=== PATIENT | male | born 1955 | race Caucasian/White ===

== ENCOUNTER 2020-11-18 18:27 | Observation (INO) ==
[2020-11-18] MEDS ORDERED: Isovue-370 500 ML BOTTLE IVP ONE (18:52)
[2020-11-18 19:06] LABS: White Blood Count 9.3 K/mcL (4.3-11.1)
[2020-11-18 19:07] LABS: Basophils # 0.1 K/mcL (0.0-0.2); Basophils % 0.8 %; Eosinophils # 0.5 K/mcL (0.0-0.6); Eosinophils % 5.5 %; Hematocrit 39.3 % (37.5-50.1); Hemoglobin 12.8 g/dL (12.9-16.9); Immature Granulocytes % 0.6 % (0-4); Lymphocytes # 2.5 K/mcL (0.6-4.6); Lymphocytes % 26.3 %; Mean Corpuscular HGB Conc 32.6 g/dL (31.6-35.5); Mean Platelet Volume 10.1 fL (9.4-12.4); Monocytes # 1.1 K/mcL (0.0-1.3); Monocytes % 12.3 %; Neutrophils # 5.1 K/mcL (1.6-8.9); Platelet Count 299 K/mcL (140-400); Red Blood Count 4.27 M/mcL (4.19-5.50); Red Cell Distribution Width 12.3 % (11.5-14.5); Segmented Neutrophils % 54.5 %
[2020-11-18] MEDS ORDERED: Aspirin 81 MG TAB.CHEW PO STA (19:13)
[2020-11-18 19:25] LABS: Alanine Aminotransferase 19 Units/L (7-52); Albumin 4.3 g/dL (3.5-5.7); Albumin/Globulin Ratio 1.4 (1.1-2.2); Alkaline Phosphatase 120 Units/L (34-104); Aspartate Amino Transferase 14 Units/L (13-39); BUN/Creatinine Ratio 21 (6-26); Bilirubin,Total 0.3 mg/dL (0.3-1.0); Blood Urea Nitrogen 19 mg/dL (8-23); Calcium 9.5 mg/dL (8.6-10.3); Carbon Dioxide 27 mEq/L (23-29); Chloride 103 mEq/L (98-107); Glucose 95 mg/dL (70-105); Osmolality,Calculated 284 (280-300); Potassium 3.9 mEq/L (3.5-5.1); Sodium 136 mEq/L (136-145); Total Protein 7.3 g/dL (6.4-8.9); Troponin I < 0.03 ng/mL (< 0.04); eGFR For African Americans > 60 (> 60); eGFR For Non-African Americans > 60 (> 60)
[2020-11-18] MEDS: Nitroglycerin 0.4 MG TAB.SUBL SL SCH ×3 (19:35→23:11)
[2020-11-18] MEDS ORDERED: Morphine Sulfate 2 MG/ML SYRINGE IVP STA (23:00)
[2020-11-19] MEDS ORDERED: Ondansetron 4 MG/2 ML VIAL IVP PRN (00:34)
[2020-11-19] MEDS ORDERED: Naloxone 0.4 MG/ML INJ IVP PRN (00:34)
[2020-11-19] MEDS ORDERED: Acetaminophen 325 MG TABLET PO PRN (00:34)
[2020-11-19] MEDS ORDERED: Melatonin 3 MG TABLET PO PRN (00:34)
[2020-11-19] MEDS ORDERED: Morphine Sulfate 2 MG/ML SYRINGE IVP PRN (03:12)
[2020-11-19] MEDS ORDERED: Morphine Sulfate 2 MG/ML SYRINGE IVP ONE (04:54)
[2020-11-19] MEDS ORDERED: Nitroglycerin 0.4 MG TAB.SUBL SL PRN (05:29)
[2020-11-19] MEDS ORDERED: Perflutren Lipid Microsphere 1.3 ML in 0.9 % Sodium Chloride 8.7 ML IVP PRN (07:49)
[2020-11-19 11:48] VITALS: BP 113/73
[2020-11-19] MEDS ORDERED: *HR* Heparin 5,000 UNIT/ML VIAL SQ SCH (18:00)
== END 2020-11-19 15:08 | disposition home or self-care (01) ==
LOC: 3BNU 18:27 → EMEROOARM 18:27 → SUATTDRO 22:23 → 3BNU 23:45
PROVIDERS: ADMIT Internal Medicine; ATTEND Registered Nurse

== ENCOUNTER 2021-11-14 13:06 | Observation (INO) ==
[2021-11-14] MEDS ORDERED: Melatonin 3 MG TABLET PO PRN (15:31)
[2021-11-14] MEDS ORDERED: Naloxone 0.4 MG/ML INJ IVP PRN (15:31)
[2021-11-14] MEDS ORDERED: Ondansetron ODT 4 MG TAB.RAPDIS SL PRN (15:31)
[2021-11-14] MEDS ORDERED: IVABRADINE HCL 7.5 MG TABLET PO ONE (15:35)
[2021-11-14 16:28] LABS: BUN/Creatinine Ratio 31 (6-26); Blood Urea Nitrogen 38 mg/dL (8-23); Calcium 9.8 mg/dL (8.6-10.3); Carbon Dioxide 30 mEq/L (23-29); Chloride 95 mEq/L (98-107); Glucose 124 mg/dL (70-105); Magnesium 2.3 mg/dL (1.6-2.6); Osmolality,Calculated 288 (280-300); Potassium 4.2 mEq/L (3.5-5.1); Sodium 134 mEq/L (136-145); Troponin I 0.05 ng/mL (< 0.04); eGFR For African Americans > 60 (> 60); eGFR For Non-African Americans > 60 (> 60)
[2021-11-14 16:43] LABS: Basophils # 0.1 K/mcL (0.0-0.2); Basophils % 0.8 %; Eosinophils # 0.2 K/mcL (0.0-0.6); Eosinophils % 1.6 %; Hematocrit 43.7 % (37.5-50.1); Hemoglobin 14.1 g/dL (12.9-16.9); Immature Granulocytes % 1.6 % (0-4); Lymphocytes # 2.6 K/mcL (0.6-4.6); Lymphocytes % 21.1 %; Mean Corpuscular HGB Conc 32.3 g/dL (31.6-35.5); Mean Corpuscular Hemoglobin 26.5 pg (28.0-33.3); Mean Corpuscular Volume 82.1 fL (83.0-100.0); Mean Platelet Volume 10.2 fL (9.4-12.4); Monocytes # 1.4 K/mcL (0.0-1.3); Monocytes % 11.3 %; Neutrophils # 7.9 K/mcL (1.6-8.9); Platelet Count 206 K/mcL (140-400); Red Blood Count 5.32 M/mcL (4.19-5.50); Red Cell Distribution Width 19.4 % (11.5-14.5); Segmented Neutrophils % 63.6 %; White Blood Count 12.5 K/mcL (4.3-11.1)
[2021-11-14] MEDS ORDERED: Dextrose 4 GM Chewable Tablets PO PRN ×2 (16:45)
[2021-11-14] MEDS ORDERED: *HR* Dextrose 50 % in Water (Syg) 50 ML SYRINGE IVP PRN (16:45)
[2021-11-14] MEDS ORDERED: D5% in Water 1,000 ML IVC PRN (16:45)
[2021-11-14] MEDS ORDERED: Bumetanide 1 MG TABLET PO SCH (17:00)
[2021-11-14] MEDS ORDERED: Albumin 25% 25gram/100mL 25 GM/100 ML IV.SOLN IVPB ONE ×2 (17:53→19:00)
[2021-11-14] MEDS: *HR* HYDROcodone/Acet 5/325 mg TABLET PO PRN ×2 (17:55→23:49)
[2021-11-14 19:09] LABS: Estimated Average Glucose 146 mg/dl; Hemoglobin A1C 6.7 %
[2021-11-14] MEDS ORDERED: Insulin LISPRO 300 UNITS/3 ML VIAL SUBQ SCH (21:00)
[2021-11-14] MEDS: Apixaban 5 MG TABLET PO SCH (22:14)
[2021-11-14] MEDS: Pregabalin 75 MG CAPSULE PO SCH (22:15)
[2021-11-14] MEDS: Amoxicillin 500 MG CAPSULE PO SCH (22:15)
[2021-11-15 00:50] LABS: Adenovirus Not Detected (Not Detect); Bordetella Pertussis Not Detected (Not Detect); Chlamydophila pneumoniae Not Detected (Not Detect); Coronavirus 229E Not Detected (Not Detect); Coronavirus HKU1 Not Detected (Not Detect); Coronavirus NL63 Not Detected (Not Detect); Coronavirus OC43 Not Detected (Not Detect); Human Metapneumovirus Not Detected (Not Detect); Human Rhinovirus/Enterovirus Not Detected (Not Detect); Influenza A Subtype 2009 H1 Not Detected (Not Detect); Influenza B Not Detected (Not Detect); Mycoplasma pneumoniae Not Detected (Not Detect); Parainfluenza Virus 1 Not Detected (Not Detect); Parainfluenza Virus 2 Not Detected (Not Detect); Parainfluenza Virus 3 Not Detected (Not Detect); Parainfluenza Virus 4 Not Detected (Not Detect); Respiratory Syncytial Virus Not Detected (Not Detect); SARS-CoV-2 Not Detected (Not Detect)
[2021-11-15 04:32] LABS: Basophils # 0.1 K/mcL (0.0-0.2); Basophils % 0.8 %; Eosinophils # 0.2 K/mcL (0.0-0.6); Eosinophils % 1.7 %; Hematocrit 42.3 % (37.5-50.1); Hemoglobin 13.5 g/dL (12.9-16.9); Immature Granulocytes % 1.4 % (0-4); Lymphocytes # 2.7 K/mcL (0.6-4.6); Lymphocytes % 20.3 %; Mean Corpuscular HGB Conc 31.9 g/dL (31.6-35.5); Mean Corpuscular Hemoglobin 26.4 pg (28.0-33.3); Mean Corpuscular Volume 82.8 fL (83.0-100.0); Mean Platelet Volume 10.1 fL (9.4-12.4); Monocytes # 1.3 K/mcL (0.0-1.3); Monocytes % 9.6 %; Neutrophils # 8.8 K/mcL (1.6-8.9); Platelet Count 198 K/mcL (140-400); Red Blood Count 5.11 M/mcL (4.19-5.50); Red Cell Distribution Width 19.4 % (11.5-14.5); Segmented Neutrophils % 66.2 %; White Blood Count 13.3 K/mcL (4.3-11.1)
[2021-11-15 04:41] LABS: INR 1.7; Prothrombin Time 19.2 Seconds (9.4-12.1)
[2021-11-15 04:54] LABS: BUN/Creatinine Ratio 28 (6-26); Blood Urea Nitrogen 33 mg/dL (8-23); Calcium 9.7 mg/dL (8.6-10.3); Carbon Dioxide 26 mEq/L (23-29); Chloride 95 mEq/L (98-107); Chol/HDL Ratio 3.8 (0-4.9); Cholesterol 121 mg/dL (< 200); Glucose 129 mg/dL (70-105); HDL Cholesterol 32 mg/dL (40-59); LDL Cholesterol,Calculated 61 mg/dL (< 100); Magnesium 2.2 mg/dL (1.6-2.6); Osmolality,Calculated 283 (280-300); Potassium 4.1 mEq/L (3.5-5.1); Sodium 132 mEq/L (136-145); Triglycerides 142 mg/dL (< 150); eGFR For African Americans > 60 (> 60); eGFR For Non-African Americans > 60 (> 60)
[2021-11-15] MEDS: Insulin LISPRO 300 UNITS/3 ML VIAL SUBQ SCH ×2 (07:58→11:12)
[2021-11-15] MEDS ORDERED: Bumetanide 1 MG/4 ML VIAL IVP SCH (08:00)
[2021-11-15] MEDS: Pregabalin 75 MG CAPSULE PO SCH (08:50)
[2021-11-15] MEDS: Amoxicillin 500 MG CAPSULE PO SCH (08:50)
[2021-11-15] MEDS: Apixaban 5 MG TABLET PO SCH (08:50)
[2021-11-15] MEDS ORDERED: *HR* Digoxin 0.125 MG TABLET PO SCH (09:00)
[2021-11-15] MEDS ORDERED: Aspirin Enteric Coated 81 MG Tablet PO SCH (09:00)
[2021-11-15] MEDS ORDERED: Spironolactone 25 MG TABLET PO SCH (09:00)
[2021-11-15] MEDS ORDERED: Potassium Chloride Elixir 20 MEQ/15 ML UDC PO SCH (09:00)
[2021-11-15] MEDS ORDERED: Perflutren Lipid Microsphere 1.3 ML in 0.9 % Sodium Chloride 8.7 ML IVP PRN (09:43)
[2021-11-15] MEDS: *HR* HYDROcodone/Acet 5/325 mg TABLET PO PRN (09:53)
[2021-11-15 11:13] VITALS: BP 110/66; PULSE 108; TEMP 97.6; O2SAT 95
== END 2021-11-15 12:59 | disposition short-term general hospital (02) ==
LOC: 3BNU 13:06 → EMEROOARM 13:06 → SUATTDRO 15:03 → 3BNU 16:15
PROVIDERS: ADMIT Student in an Organized Health Care Education/Training Program; ATTEND Registered Nurse

== ENCOUNTER 2021-12-16 12:53 | Inpatient (IN) ==
[2021-12-16] MEDS ORDERED: Nitroglycerin 0.4 MG TAB.SUBL SL PRN (12:59)
[2021-12-16 13:26] LABS: Basophils # 0.1 K/mcL (0.0-0.2); Eosinophils # 0.3 K/mcL (0.0-0.6); Eosinophils % 2.3 %; Hematocrit 37.2 % (37.5-50.1); Hemoglobin 11.9 g/dL (12.9-16.9); Immature Granulocytes % 4.4 % (0-4); Lymphocytes # 2.2 K/mcL (0.6-4.6); Lymphocytes % 17.1 %; Mean Corpuscular Hemoglobin 25.6 pg (28.0-33.3); Mean Corpuscular Volume 80.2 fL (83.0-100.0); Mean Platelet Volume 10.8 fL (9.4-12.4); Monocytes # 1.2 K/mcL (0.0-1.3); Monocytes % 9.3 %; Neutrophils # 8.5 K/mcL (1.6-8.9); Platelet Count 190 K/mcL (140-400); Red Blood Count 4.64 M/mcL (4.19-5.50); Red Cell Distribution Width 18.8 % (11.5-14.5); Segmented Neutrophils % 65.9 %; White Blood Count 12.9 K/mcL (4.3-11.1)
[2021-12-16 13:34] LABS: INR 1.3; Prothrombin Time 14.7 Seconds (9.4-12.1)
[2021-12-16 13:36] LABS: VBG HCO3 24 mEq/L (21-27); VBG PCO2 34 mmHg (41-51); VBG PH 7.46 pH Units (7.32-7.42); VBG PO2 177 mmHg (25-50)
[2021-12-16] MEDS ORDERED: Isovue-370 500 ML BOTTLE IVP ONE (13:39)
[2021-12-16 13:48] LABS: Calcium 8.9 mg/dL (8.6-10.3); Potassium 3.8 mEq/L (3.5-5.1)
[2021-12-16 14:07] LABS: Troponin I 0.06 ng/mL (< 0.04)
[2021-12-16] MEDS ORDERED: levoFLOXacin 750 MG/150 ML 750 MG/150 ML BAG IVPB ONE (14:16)
[2021-12-16] MEDS ORDERED: Naloxone 0.4 MG/ML INJ IVP PRN (15:04)
[2021-12-16] MEDS ORDERED: *HR* Dextrose 50 % in Water (Syg) 50 ML SYRINGE IVP PRN (15:07)
[2021-12-16] MEDS ORDERED: D5% in Water 1,000 ML IVC PRN (15:07)
[2021-12-16] MEDS ORDERED: Dextrose 4 GM Chewable Tablets PO PRN ×2 (15:07)
[2021-12-16] MEDS ORDERED: Furosemide 40 MG/4 ML VIAL IVP ONE (15:56)
[2021-12-16] MEDS: *HR* HYDROcodone/Acet 10/325 mg TABLET PO PRN ×2 (16:29→20:27)
[2021-12-16] MEDS ORDERED: Insulin LISPRO 300 UNITS/3 ML VIAL SUBQ SCH (16:30)
[2021-12-16] MEDS: levETIRAcetam 250 MG TABLET PO SCH ×2 (17:48→18:00)
[2021-12-16] MEDS: Apixaban 5 MG TABLET PO SCH (20:26)
[2021-12-16] MEDS ORDERED: hydrOXYzine pamoate 25 MG CAPSULE PO ONE (21:25)
[2021-12-17] MEDS: *HR* HYDROcodone/Acet 5/325 mg TABLET PO PRN (00:51)
[2021-12-17] MEDS: Acetaminophen 325 MG TABLET PO PRN ×2 (03:46→22:38)
[2021-12-17 05:14] LABS: Basophils # 0.1 K/mcL (0.0-0.2); Basophils % 0.8 %; Eosinophils # 0.3 K/mcL (0.0-0.6); Eosinophils % 1.8 %; Hematocrit 40.4 % (37.5-50.1); Hemoglobin 12.8 g/dL (12.9-16.9); Immature Granulocytes % 4.4 % (0-4); Lymphocytes # 2.1 K/mcL (0.6-4.6); Lymphocytes % 13.9 %; Mean Corpuscular HGB Conc 31.7 g/dL (31.6-35.5); Mean Corpuscular Hemoglobin 25.4 pg (28.0-33.3); Mean Corpuscular Volume 80.2 fL (83.0-100.0); Mean Platelet Volume 10.7 fL (9.4-12.4); Monocytes # 1.5 K/mcL (0.0-1.3); Monocytes % 9.8 %; Neutrophils # 10.7 K/mcL (1.6-8.9); Platelet Count 216 K/mcL (140-400); Red Blood Count 5.04 M/mcL (4.19-5.50); Red Cell Distribution Width 19.2 % (11.5-14.5); Segmented Neutrophils % 69.3 %; White Blood Count 15.4 K/mcL (4.3-11.1)
[2021-12-17 05:24] LABS: Estimated Average Glucose 166 mg/dl; Hemoglobin A1C 7.4 %
[2021-12-17 05:34] LABS: Calcium 9.2 mg/dL (8.6-10.3); Chol/HDL Ratio 3.5 (0-4.9); Magnesium 2.6 mg/dL (1.6-2.6); Phosphorous 3.8 mg/dL (2.7-4.5); Potassium 4.6 mEq/L (3.5-5.1)
[2021-12-17 05:38] LABS: Troponin I 0.06 ng/mL (< 0.04)
[2021-12-17] MEDS ORDERED: *HR* OxyCODONE Immed Rel 5 MG TABLET PO ONE (06:23)
[2021-12-17] MEDS: cefTRIAXone 1,000 MG in 0.9 % Sodium Chloride 10 ML IVP SCH (08:07)
[2021-12-17] MEDS: Apixaban 5 MG TABLET PO SCH ×2 (08:07→19:52)
[2021-12-17] MEDS: Azithromycin 500 MG in 0.9 % Sodium Chloride 250 ML IVPB SCH (08:08)
[2021-12-17] MEDS ORDERED: Perflutren Lipid Microsphere 1.3 ML in 0.9 % Sodium Chloride 8.7 ML IVP PRN (11:35)
[2021-12-17] MEDS: Furosemide 40 MG/4 ML VIAL IVP SCH ×2 (12:38→19:52)
[2021-12-17] MEDS: Ondansetron 4 MG/2 ML VIAL IVP PRN (12:42)
[2021-12-17] MEDS: *HR* HYDROcodone/Acet 10/325 mg TABLET PO PRN ×3 (12:45→20:36)
[2021-12-17] MEDS: Melatonin 3 MG TABLET PO SCH (22:52)
[2021-12-18] MEDS: *HR* HYDROcodone/Acet 10/325 mg TABLET PO PRN ×5 (00:36→20:04)
[2021-12-18] MEDS ORDERED: hydrOXYzine pamoate 25 MG CAPSULE PO ONE (00:43)
[2021-12-18 01:42] LABS: Basophils # 0.1 K/mcL (0.0-0.2); Eosinophils # 0.3 K/mcL (0.0-0.6); Eosinophils % 2.2 %; Hematocrit 38.6 % (37.5-50.1); Hemoglobin 12.4 g/dL (12.9-16.9); Immature Granulocytes % 2.9 % (0-4); Lymphocytes # 2.1 K/mcL (0.6-4.6); Lymphocytes % 17.6 %; Mean Corpuscular HGB Conc 32.1 g/dL (31.6-35.5); Mean Corpuscular Hemoglobin 25.6 pg (28.0-33.3); Mean Corpuscular Volume 79.8 fL (83.0-100.0); Mean Platelet Volume 10.6 fL (9.4-12.4); Monocytes # 1.5 K/mcL (0.0-1.3); Monocytes % 12.2 %; Neutrophils # 7.7 K/mcL (1.6-8.9); Platelet Count 205 K/mcL (140-400); Red Blood Count 4.84 M/mcL (4.19-5.50); Red Cell Distribution Width 18.8 % (11.5-14.5); Segmented Neutrophils % 64.1 %; White Blood Count 12.1 K/mcL (4.3-11.1)
[2021-12-18 02:03] LABS: Calcium 9.2 mg/dL (8.6-10.3); Potassium 4.4 mEq/L (3.5-5.1)
[2021-12-18 02:06] LABS: % Iron Saturation 9 % (20-55); Iron 57 mcg/dL (65-175); Transferrin 471 mg/dL (203-362)
[2021-12-18 02:20] LABS: Ferritin 36 ng/mL (20-250)
[2021-12-18] MEDS: Apixaban 5 MG TABLET PO SCH ×2 (07:59→20:03)
[2021-12-18] MEDS: cefTRIAXone 1,000 MG in 0.9 % Sodium Chloride 10 ML IVP SCH (07:59)
[2021-12-18] MEDS: Pregabalin 75 MG CAPSULE PO SCH ×2 (07:59→20:02)
[2021-12-18] MEDS: Azithromycin 500 MG in 0.9 % Sodium Chloride 250 ML IVPB SCH (07:59)
[2021-12-18] MEDS: Ondansetron 4 MG/2 ML VIAL IVP PRN (08:08)
[2021-12-18] MEDS ORDERED: Metoclopramide 10 MG/2 ML VIAL IVP ONE (09:21)
[2021-12-18] MEDS ORDERED: Furosemide 40 MG/4 ML VIAL IVP ONE (09:55)
[2021-12-18 12:11] LABS: ABG Base Excess -5 mEq/L (-2 to 3); ABG HCO3 19 mEq/L (21-27); ABG Oxygen Saturation 100 % (95-98); ABG PCO2 35 mmHg (35-45); ABG PH 7.35 pH Units (7.32-7.45); ABG PO2 251 mmHg (85-104); ABG TCO2 21 mEq/L (20-26)
[2021-12-18] MEDS: Furosemide 40 MG/4 ML VIAL IVP SCH (16:05)
[2021-12-18] MEDS: Melatonin 3 MG TABLET PO SCH (20:03)
[2021-12-18] MEDS: levETIRAcetam 250 MG TABLET PO SCH (20:03)
[2021-12-18] MEDS ORDERED: Melatonin 3 MG TABLET PO SCH (21:00)
[2021-12-19] MEDS: *HR* HYDROcodone/Acet 10/325 mg TABLET PO PRN ×2 (01:14→15:36)
[2021-12-19 05:55] LABS: Basophils # 0.1 K/mcL (0.0-0.2); Eosinophils # 0.3 K/mcL (0.0-0.6); Eosinophils % 2.4 %; Hematocrit 39.9 % (37.5-50.1); Hemoglobin 12.7 g/dL (12.9-16.9); Immature Granulocytes % 3.3 % (0-4); Lymphocytes % 15.6 %; Mean Corpuscular HGB Conc 31.8 g/dL (31.6-35.5); Mean Corpuscular Hemoglobin 25.8 pg (28.0-33.3); Mean Corpuscular Volume 80.9 fL (83.0-100.0); Mean Platelet Volume 10.4 fL (9.4-12.4); Monocytes # 1.6 K/mcL (0.0-1.3); Monocytes % 12.5 %; Neutrophils # 8.5 K/mcL (1.6-8.9); Platelet Count 196 K/mcL (140-400); Red Blood Count 4.93 M/mcL (4.19-5.50); Segmented Neutrophils % 65.2 %; White Blood Count 13.1 K/mcL (4.3-11.1)
[2021-12-19 06:20] LABS: Calcium 8.9 mg/dL (8.6-10.3); Potassium 4.3 mEq/L (3.5-5.1)
[2021-12-19] MEDS: Pregabalin 75 MG CAPSULE PO SCH (07:46)
[2021-12-19] MEDS: Apixaban 5 MG TABLET PO SCH ×2 (07:46→19:45)
[2021-12-19] MEDS: levETIRAcetam 250 MG TABLET PO SCH ×2 (07:46→19:44)
[2021-12-19] MEDS: cefTRIAXone 1,000 MG in 0.9 % Sodium Chloride 10 ML IVP SCH (07:47)
[2021-12-19] MEDS: Furosemide 40 MG/4 ML VIAL IVP SCH ×2 (07:47→20:52)
[2021-12-19] MEDS: Azithromycin 500 MG in 0.9 % Sodium Chloride 250 ML IVPB SCH (08:01)
[2021-12-19] MEDS ORDERED: Ipratropium/Albuterol Neb 3 ML IH PRN (20:45)
[2021-12-19] MEDS: Pregabalin 50 MG CAPSULE PO SCH (20:52)
[2021-12-19] MEDS: Melatonin 3 MG TABLET PO SCH (20:52)
[2021-12-20] MEDS: *HR* HYDROcodone/Acet 5/325 mg TABLET PO PRN ×2 (00:17→17:16)
[2021-12-20 03:14] LABS: Hematocrit 39.9 % (37.5-50.1); Hemoglobin 12.7 g/dL (12.9-16.9); Mean Corpuscular HGB Conc 31.8 g/dL (31.6-35.5); Mean Corpuscular Hemoglobin 25.8 pg (28.0-33.3); Mean Corpuscular Volume 80.9 fL (83.0-100.0); Mean Platelet Volume 10.6 fL (9.4-12.4); Platelet Count 223 K/mcL (140-400); Red Blood Count 4.93 M/mcL (4.19-5.50); Red Cell Distribution Width 19.5 % (11.5-14.5); White Blood Count 13.3 K/mcL (4.3-11.1)
[2021-12-20 03:38] LABS: Calcium 8.7 mg/dL (8.6-10.3); Potassium 4.7 mEq/L (3.5-5.1)
[2021-12-20] MEDS ORDERED: *HR* LORazepam 2 MG/ML VIAL IVP ONE (04:08)
[2021-12-20] MEDS ORDERED: *HR* Digoxin 0.125 MG TABLET PO SCH (09:00)
[2021-12-20] MEDS: cefTRIAXone 1,000 MG in 0.9 % Sodium Chloride 10 ML IVP SCH (09:26)
[2021-12-20] MEDS: Furosemide 40 MG/4 ML VIAL IVP SCH ×2 (09:27→17:08)
[2021-12-20] MEDS: Pregabalin 50 MG CAPSULE PO SCH ×2 (09:27→20:29)
[2021-12-20] MEDS: Apixaban 5 MG TABLET PO SCH ×2 (09:28→20:29)
[2021-12-20] MEDS: Azithromycin 250 MG TABLET PO SCH (09:28)
[2021-12-20] MEDS: levETIRAcetam 250 MG TABLET PO SCH ×2 (09:28→20:29)
[2021-12-20 10:49] LABS: VBG HCO3 23 mEq/L (21-27); VBG PCO2 33 mmHg (41-51); VBG PH 7.46 pH Units (7.32-7.42); VBG PO2 209 mmHg (25-50)
[2021-12-20] MEDS ORDERED: Furosemide 40 MG/4 ML VIAL IVP ONE (16:07)
[2021-12-20] MEDS: *HR* HYDROcodone/Acet 10/325 mg TABLET PO PRN (20:28)
[2021-12-20] MEDS: Melatonin 3 MG TABLET PO SCH (20:29)
[2021-12-21] MEDS ORDERED: Albumin 25% 25gram/100mL 25 GM/100 ML IV.SOLN IVPB ONE (00:08)
[2021-12-21] MEDS: *HR* HYDROcodone/Acet 5/325 mg TABLET PO PRN ×2 (00:38→23:48)
[2021-12-21] MEDS ORDERED: Furosemide 40 MG/4 ML VIAL IVP ONE (02:41)
[2021-12-21 03:29] LABS: Hematocrit 38.5 % (37.5-50.1); Hemoglobin 12.1 g/dL (12.9-16.9); Mean Corpuscular HGB Conc 31.4 g/dL (31.6-35.5); Mean Corpuscular Hemoglobin 25.7 pg (28.0-33.3); Mean Corpuscular Volume 81.7 fL (83.0-100.0); Platelet Count 225 K/mcL (140-400); Red Blood Count 4.71 M/mcL (4.19-5.50); Red Cell Distribution Width 19.3 % (11.5-14.5); White Blood Count 12.4 K/mcL (4.3-11.1)
[2021-12-21 03:45] LABS: Potassium 4.3 mEq/L (3.5-5.1)
[2021-12-21] MEDS: *HR* HYDROcodone/Acet 10/325 mg TABLET PO PRN ×3 (04:57→20:38)
[2021-12-21] MEDS: Azithromycin 250 MG TABLET PO SCH (09:35)
[2021-12-21] MEDS: Furosemide 40 MG/4 ML VIAL IVP SCH (09:35)
[2021-12-21] MEDS: cefTRIAXone 1,000 MG in 0.9 % Sodium Chloride 10 ML IVP SCH (09:35)
[2021-12-21] MEDS: levETIRAcetam 250 MG TABLET PO SCH ×2 (09:36→20:38)
[2021-12-21] MEDS: Pregabalin 50 MG CAPSULE PO SCH ×2 (09:36→20:38)
[2021-12-21] MEDS: Apixaban 5 MG TABLET PO SCH ×2 (09:37→22:18)
[2021-12-21 11:31] LABS: RBC,Peritoneal Fluid 4000 RBC/mcL
[2021-12-21 12:41] LABS: Appearance of Peritoneal Fl HAZY (Clear); Basophils,Peritoneal Fluid 0 %; Eosinophils,Peritoneal Fluid 0 %
[2021-12-21] MEDS: Albumin 25% 25gram/100mL 25 GM/100 ML IV.SOLN IVPB SCH (20:38)
[2021-12-21] MEDS: Melatonin 3 MG TABLET PO SCH (22:18)
[2021-12-21] MEDS: Furosemide 80 MG in 0.9 % Sodium Chloride 50 ML IV SCH (22:22)
[2021-12-21] MEDS ORDERED: Furosemide 40 MG/4 ML VIAL IVP SCH (23:00)
[2021-12-22 02:39] LABS: Hematocrit 37.4 % (37.5-50.1); Hemoglobin 12.2 g/dL (12.9-16.9); Mean Corpuscular HGB Conc 32.6 g/dL (31.6-35.5); Mean Corpuscular Hemoglobin 26.3 pg (28.0-33.3); Mean Corpuscular Volume 80.6 fL (83.0-100.0); Mean Platelet Volume 10.7 fL (9.4-12.4); Platelet Count 214 K/mcL (140-400); Red Blood Count 4.64 M/mcL (4.19-5.50); White Blood Count 12.3 K/mcL (4.3-11.1)
[2021-12-22 02:58] LABS: Calcium 8.9 mg/dL (8.6-10.3)
[2021-12-22] MEDS: *HR* HYDROcodone/Acet 10/325 mg TABLET PO PRN (05:30)
[2021-12-22] MEDS: cefTRIAXone 1,000 MG in 0.9 % Sodium Chloride 10 ML IVP SCH (07:49)
[2021-12-22] MEDS: Pregabalin 50 MG CAPSULE PO SCH (07:51)
[2021-12-22] MEDS: levETIRAcetam 250 MG TABLET PO SCH (07:52)
[2021-12-22] MEDS: Apixaban 5 MG TABLET PO SCH (07:52)
[2021-12-22] MEDS: Azithromycin 250 MG TABLET PO SCH (07:52)
[2021-12-22] MEDS: Albumin 25% 25gram/100mL 25 GM/100 ML IV.SOLN IVPB SCH (07:52)
[2021-12-22 10:45] VITALS: BP 111/66; PULSE 100; TEMP 97.8; O2SAT 98
[2021-12-22] MEDS: Furosemide 80 MG in 0.9 % Sodium Chloride 50 ML IV SCH (10:52)
[2021-12-22 13:29] LABS: Albumin 3.9 g/dL (3.5-5.7)
== END 2021-12-22 12:44 | disposition short-term general hospital (02) | DRG 280 ==
LOC: EMEROOARM 12:53 → 2NENU 12:53 → SUATTDRO 12-17 18:08
PROVIDERS: ADMIT Internal Medicine; ATTEND Family Medicine